=== PATIENT | female | born 1960 | race Caucasian/White ===

== ENCOUNTER 2018-05-17 09:52 | Inpatient (IN) ==
[2018-05-17] MEDS ORDERED: Sodium Chlor 0.9% Inj 250 ML ONE (10:29)
[2018-05-17] MEDS ORDERED: Metoprolol Tartrate 25 MG Tablet PO ONE (11:16)
[2018-05-17] MEDS ORDERED: Sodium Chloride 0.9% 2 ML Flush PRN IV.FLUSH (11:16)
[2018-05-17] MEDS ORDERED: Chlorhexidine Gluconate 2% 1 Pack (2 Cloths) TOPICAL ONE (11:16)
[2018-05-17] MEDS ORDERED: Sodium Chlor 0.9% Inj 73.07 ML, Ropivacaine 0.5% PF Inj 24.63 ML, Ketorolac Inj 30 MG, ... P-ARTICULR ONE ×5 (11:38)
[2018-05-17] MEDS ORDERED: Chlorhexidine 4% Topical 120 APPLIC/120 ML Bottle TOPICAL SCH (11:45)
[2018-05-17] MEDS ORDERED: fentaNYL Citrate Inj 100 MCG/2 ML Ampul ONE ×2 (11:53→12:01)
[2018-05-17] MEDS ORDERED: fentaNYL Citrate Inj 250 MCG/5 ML Ampul ONE (11:53)
[2018-05-17] MEDS ORDERED: Famotidine PF Inj 20 MG/2 ML Vial ONE (11:53)
[2018-05-17] MEDS ORDERED: Sodium Chlor 0.9% Inj 500 ML IV.SIG SCH (12:00)
[2018-05-17] MEDS ORDERED: Vancomycin Inj 1,000 MG in Sodium Chlor 0.9% Inj 250 ML IV.SIG SCH (12:00)
[2018-05-17] MEDS ORDERED: ceFAZolin 2 GM Premix Inj 2 GM/50 ML PIGGYBACK IV.SIG SCH (12:00)
[2018-05-17] MEDS ORDERED: Ketamine Inj 50 MG/5 ML Syringe IV.PUSH ONE (12:01)
[2018-05-17] MEDS ORDERED: ceFAZolin 1 GM Premix Inj 1 GM/50 ML FROZ.PIGGY IV.SIG ONE (13:08)
[2018-05-17] MEDS ORDERED: Bisacodyl 10 MG Supp RECTAL PRN (15:28)
[2018-05-17] MEDS ORDERED: Post-op Orders (for Pharmacy) OTHER STA (15:28)
[2018-05-17] MEDS ORDERED: Morphine Inj 4 MG/ML Vial IV.PUSH PRN (15:28)
[2018-05-17] MEDS ORDERED: Zolpidem Tartrate 5 MG Tablet PO PRN (15:29)
--- NOTE | 2018-05-17 15:39 | P.DCO ---
- Physical Therapy Physical Therapy: Gait training, Safety evaluation, Transfer training, bed to chair Knee: Total knee, Protocol: Left, Full weight bearing Canvas Knee Splint: Other (when in bed sleeping ) - Nursing RN: 3 days/week x 2 weeks Nursing: Dressing changes (clean incision with alcohol and apply dry sterile dressing daily ) Additional instructions: aspirin 81 mg bid x 4 weeks dvt prop - Certification Need for Home Health services: I have seen patient Karlie Wilson on 05/17/18. My clinical findings support the need for the requested home health care services because: Need for Home Health Services: High risk of falls Homebound Certification: I certify that my clinical findings support that this patient is homebound because: Homebound Certification: Post-op weakness
--- NOTE | 2018-05-17 15:53 | MP ---
cc: Imtiaz Gibson MD, Arletty MD DATE OF OPERATION: 05/17/2018 PREOPERATIVE DIAGNOSES: 1. Left knee severe tricompartment osteoarthritis, genu varus deformity. 2. Left knee stiffness. 3. Obesity with body mass index of 36.1. POSTOPERATIVE DIAGNOSES: 1. Left knee severe tricompartment osteoarthritis, genu varus deformity. 2. Left knee stiffness. 3. Obesity with body mass index of 36.1. PROCEDURE PERFORMED: Left total knee arthroplasty -- cemented [employer]. SURGEON: Imtiaz Gibson MD COMMUTATOR TESTER: Cat Fletcher PA-C TOURNIQUET TIME: 69 minutes at 250 mmHg. ANESTHESIA: General, adductor canal block, intraarticular block. DRAINS: Two. SPECIMENS: None. COMPLICATIONS: None. PROCEDURE: My asset protection assistant, Cat Fletcher PA-C, was present for the entire surgical case. She was medically necessary for the entire case, because of the complexity of the case and to facilitate the performance of the procedure. The SEED CLEANING MACHINE OPERATOR at the back table was not of the skill set for this case to manipulate the instruments, e.g. multiple soft tissue retractors, trial implants, permanent implants, including bone cement. The patient was brought in the operating room and had satisfactory anesthesia by the Department of Anesthesia. Left lower extremity was prepped and draped in the usual sterile manner. Because the patient's obesity, great care was made to protect all pressure points. Left lower extremity was prepped and draped in the usual sterile manner. The extremity was exsanguinated by elevation and tourniquet was inflated to 250 mmHg. Anterior exposure to the knee was made. Dissection carried through a considerable amount of adipose tissue down to the underlying fascia. A paramedian capsulotomy was performed. The patella dislocated laterally. The patient was found to have severe tricompartment osteoarthritis in all 3 compartments of the knee. The patient was also found to have significant stiffness in the knee. Preoperative range of motion was 90 degrees of flexion. The remaining portion of medial and lateral meniscus removed. The anterior cruciate ligament was removed. The posterior cruciate ligament was preserved. Prepatellar fat pad was surgically excised. Using the [employer]-Vanguard total knee arthroplasty system, IM guide was used for the distal femur. A 5-degree valgus cut to accept the 70 mm femoral component. The proximal tibia guides were used extramedullary. These were used to accept a 79 mm tibial component. The posterior osteophytes in the distal femur were removed using curved osteotomes. A lamina silk worker was used with the knee flexed at 90 degrees in order to do adequate releases posteriorly. With the 12 mm insert, the patient was found to have excellent balance in both flexion and extension. The undersurface of the patella was removed to accept a 31 mm patellar prosthesis. Lateral retinacular release was performed. The patella was found to groove well within the patellofemoral compartment. All trial components were removed and preparation for cementing was made. Initially, the knee was injected with 100 mL of local anesthesia, which was provided by the Department of Pharmacy. The knee was irrigated with copious amounts of sterile saline antibiotic solution. Two packages of high viscosity bone cement by [employer] were used. First, the tibial component was cemented, which is a 79 mm tibial component, then the femoral component, which was a 70 mm of femoral component. Then, the 31 mm patellar prosthesis was then cemented. All excess bone cement was removed. The bone cement was allowed to harden for 13 minutes. The trial polyethylene plastic was removed and then a 12 x 79 "lipped" polyethylene plastic was assembled onto the tibial tray and then the appropriate clipping mechanisms were used to secure the polyethylene plastic to the tibial tray. The knee was irrigated with 4000 mL of sterile saline antibiotic solution. Tourniquet was deflated. All bleeders were coagulated. The wound itself was dry. It was closed over 2 Hemovac drains. The capsule and extensor mechanism were repaired with multiple #2 Ti-Cron sutures. Subcuticular layers with 0 Vicryl and 2-0 Vicryl, skin was approximated with skin wes. Sterile dressings were applied. The patient tolerated the procedure well and arrived in the recovery room in stable and satisfactory condition. MD SHERIN Joel/srikanth , 03:14 PM , 03:28 PM
[2018-05-17] MEDS ORDERED: *morphine SULFATE 4 MG/ML PERIprocedure ONLY ONE (16:10)
--- NOTE | 2018-05-17 17:16 | XR ---
EXAM DATE: 05/17/2018 5:08 PM EST AGE/SEX: 58 years / Female INDICATIONS: Post of left total knee. CLINICAL DATA: This is the patient's initial encounter. Patient reports that signs and symptoms have been present for 1 day and indicates a pain score of 4/10. MEDICAL/SURGICAL HISTORY: None. Total knee replacement, left. COMPARISON: No prior exams available for comparison. FINDINGS: AP and lateral views of the knee were obtained and demonstrate the patient is status post arthroplast y. The femoral and tibial components are intact and in normal alignment. There are postoperative kirkpatrick ges involving the patella. There is anterior soft tissue swelling and gas with overlying surgical ski n wes. Surgical drainage catheters are also present. CONCLUSION: Expected postoperative changes status post arthroplasty. Electronically signed by: James Benz MD 05/17/2018 5:14 PM EST
--- NOTE | 2018-05-17 18:20 | P.CONIM ---
History of Present Illness Primary Care Provider: Radha Costa [facility] Social History Social History Substance History: No History of Abuse Second Hand Smoke Exposure: No Smoking Status: Former smoker Tobacco Type: Cigarettes How Often Do You Have a Drink Containing Alcohol: Never Recent Travel in [facility] within the Last 8 Weeks: No Recent Out of Country Travel within the Last 8 Weeks: No Immunization History Hx Influenza Vaccine This Season: No Medications and Allergies Allergies Allergy/AdvReac Type Severity Reaction Status Date / Time Penicillins Allergy Severe Hives Verified 05/17/18 10:42 Home Medications Medication Instructions Recorded Confirmed Type aspirin [Aspir-Low] 81 mg PO DAILY 04/19/18 05/17/18 History furosemide 40 mg PO DAILY 04/19/18 05/17/18 History levothyroxine 50 mcg PO DAILY 04/19/18 05/17/18 History lisinopril 20 mg PO DAILY 04/19/18 05/17/18 History metformin 500 mg PO BID 04/19/18 05/17/18 History metoprolol succinate 25 mg PO DAILY 04/19/18 05/17/18 History omeprazole 40 mg PO DAILY 04/19/18 05/17/18 History potassium chloride [K-Tab] 20 meq PO DAILY 04/19/18 05/17/18 History Active Medications: Active Medications Hydrocodone Bitart/Acetaminophen (Perkins 7.5/325) 1 tab PO Q4H PRN PRN Reason: PAIN LESS THAN 5 ON SCALE Hydrocodone Bitart/Acetaminophen (Perkins 7.5/325) 2 tab PO Q6H PRN PRN Reason: PAIN SCALE 5 TO 10 Al Hydroxide/Mg Hydroxide (Milk Of Magnesia Liq) 30 ml PO BID PRN PRN Reason: Mild Constipation Aspirin (Aspirin Chew) 81 mg PO BID [facility] Bisacodyl (Dulcolax Supp) 10 mg RECTAL DAILY PRN PRN Reason: SEVERE CONSITIPATION Chlorhexidine Gluconate (Hibiclens 4% Topical) 1 applicatio TOPICAL ONCE [facility] Stop: 05/21/18 11:44 Furosemide (Lasix) 40 mg PO DAILY [facility] Cefazolin Sodium/Dextrose (Ancef 2 Gm Premix Inj) 2 gm in 50 mls @ 100 mls/hr IV.[facility] [place] [employer]ON[employer] Stop: 05/21/18 11:59 Last Infusion: 05/17/18 14:21 Dose: Infused Vancomycin HCl 1,000 mg/ (Sodium Chloride) 250 mls @ 250 mls/hr IV.[place] [employer]ON[employer] Stop: 05/20/18 11:39 Last Infusion: 05/17/18 14:23 Dose: Infused Lactated Ringer's (Lr 1000 Ml Inj) 1,000 mls @ 80 mls/hr IV.CONT .[id number] [facility] Last Admin: 05/17/18 16:00 Dose: 80 mls/hr Cefazolin Sodium/Dextrose (Ancef 1 Gm Premix Inj) 1 gm in 50 mls @ 100 mls/hr IV.SIG Q6H [facility] Stop: 05/18/18 08:29 Lactulose (Lactulose Liq) 30 ml PO DAILY PRN PRN Reason: SEVERE CONSITIPATION Levothyroxine Sodium (Synthroid) 50 mcg PO DAILY@0600 [facility] Lisinopril (Prinivil) 20 mg PO DAILY [facility] Metformin HCl (Glucophage) 500 mg PO BID@0900,1800 [facility] Metoprolol Succinate (Toprol Xl) 25 mg PO DAILY [facility] Miscellaneous Information ([facility] Nursing Information) 1 each OTHER UNSCH PRN PRN Reason: SEE LABEL COMMENTS Stop: 05/18/18 15:38 Morphine Sulfate (Morphine Inj) 3 mg IV.PUSH Q3H PRN PRN Reason: BREAKTHROUGH PAIN Stop: 05/18/18 06:00 Pantoprazole Sodium (Protonix) 40 mg PO DAILY [facility] Potassium Chloride (K-Dur) 20 meq PO DAILY [facility] Senna/Docusate Sodium (Aditi-Colace) 1 tab PO BID [facility] Sennosides (Senokot) 17.2 mg PO BID PRN PRN Reason: Moderate Constipation Sodium Chloride (Ns Flush) 2 ml IV.FLUSH PRN PRN PRN Reason: FLUSH AFTER USING IV ACCESS Sodium Chloride (Ns Flush) 2 ml IV.FLUSH BID [facility] Zolpidem Tartrate (Ambien) 5 mg PO HS PRN PRN Reason: INSOMNIA Physical Exam Vital signs: Last Vital Signs Temp 97.9 F 05/17/18 16:45 Pulse 83 05/17/18 16:45 Resp 16 05/17/18 16:45 BP 104/51 L 05/17/18 16:45 Pulse Ox 94 L 05/17/18 16:45
[2018-05-17] MEDS ORDERED: Sodium Chlor 0.9% Inj 500 ML IV.SIG ONE (20:00)
[2018-05-17] MEDS: ceFAZolin 1 GM Premix Inj 1 GM/50 ML IV.SIG SCH (20:51)
[2018-05-17] MEDS: Senna/Docusate Sodium 8.6/50 MG Tablet PO SCH (20:53)
[2018-05-17] MEDS ORDERED: Sodium Chloride 0.9% 2 ML Flush BID IV.FLUSH SCH (21:00)
[2018-05-18] MEDS: ceFAZolin 1 GM Premix Inj 1 GM/50 ML IV.SIG SCH ×2 (01:24→07:29)
[2018-05-18 05:25] LABS: Hematocrit 32.8 % (35.0-46.0); Hemoglobin 10.6 gm/dL (11.6-15.3)
[2018-05-18] MEDS ORDERED: Levothyroxine 50 MCG Tablet PO SCH (06:00)
--- NOTE | 2018-05-18 06:53 | P.PNOP ---
Subjective Interval history: POD#1 L TKR No SOB;no chest pain Explained operative findings,answered multiple questions Physical Exam Vital signs: Vital Signs 05/17/18 10:47 05/17/18 11:45 05/17/18 15:38 Temperature 98.7 F 97.7 F Pulse Rate 85 84 93 H Respiratory Rate 16 15 Blood Pressure 105/55 L 102/56 L Pulse Oximetry 100 97 05/17/18 15:45 05/17/18 16:00 05/17/18 16:15 Temperature Pulse Rate 95 H 81 83 Respiratory Rate 15 15 15 Blood Pressure 98/50 L 102/53 L 104/52 L Pulse Oximetry 97 97 95 05/17/18 16:30 05/17/18 16:45 05/17/18 17:40 Temperature 97.9 F 98.4 F Pulse Rate 90 83 84 Respiratory Rate 16 16 18 Blood Pressure 95/50 L 104/51 L 95/51 L Pulse Oximetry 94 L 94 L 96 05/17/18 21:06 05/17/18 23:43 05/18/18 04:00 Temperature 98.0 F Pulse Rate 103 H Respiratory Rate 16 Blood Pressure 94/47 L 94/51 L 103/52 L Pulse Oximetry 95 05/18/18 05:22 Temperature Pulse Rate Respiratory Rate Blood Pressure 115/53 L Pulse Oximetry Intake & Output 05/17/18 05/17/18 05/18/18 06:59 18:59 06:59 Intake Total 1250 / 1250 1800 / 1800 Output Total 100 / 100 550 / 550 Balance 1150 / 1150 1250 / 1250 Weight 121 kg Intake: IV 350 / 350 1800 / 1800 LR 1000 mL Inj 1,000 ML @ 80 900 / 900 mls/hr IV.CONT .[id number] [facility] Rx# :[id number] LR 1000 mL Inj 1,000 ML @ 30 300 / 300 mls/hr IV.SIG .Q24H [facility] Rx#: [id number] NS Inj 500 ML @ 999 mls/hr IV. 500 / 500 SIG BOLUS ONE Rx#:[id number] Vancomycin Inj 1,000 MG In NS 250 / 250 Inj 250 ML @ 250 mls/hr IV.SIG [facility] Rx#:[id number] Ancef 1 GM Premix Inj 1 gm In 50 / 50 100 / 100 50 ml @ 100 mls/hr IV.SIG Q6H [facility] Rx#:[id number] Ancef 2 GM Premix Inj 2 gm In 50 / 50 50 ml @ 100 mls/hr IV.SIG [facility] Rx#:[id number] Anesthesia Amount 900 / 900 Output: Urine 400 / 400 Estimated Blood Loss 100 / 100 Wound Drainage 150 / 150 # 1 Left Knee Hemovac 150 / 150 Other: # Voids 1 Weight On Admission 121 kg Narrative: N/V intact Negative wiliam's;no calf tenderness Drain 150cc last shift Results - Labs CBC & Chem 7: 05/18/18 04:23 Laboratory Results - last 24 hr 05/17/18 05/18/18 10:27 04:23 Hgb 10.6 L Hct 32.8 L Blood Type O Negative Blood Type Recheck Required Antibody Screen Negative MTS Gel Crossmatch See Detail - Imaging Impressions Knee X-Ray 05/17/18 15:27 CONCLUSION: Expected postoperative changes status post arthroplasty. Assessment and Plan - Assessment and Plan Ortho stable PT/Rehab Discharge home today HHC RN/PT Aspirin 81mg BID,TEDS x 4 weeks for DVT/PE prophylaxsis
[2018-05-18] MEDS: Senna/Docusate Sodium 8.6/50 MG Tablet PO SCH (08:26)
[2018-05-18] MEDS ORDERED: Lisinopril 20 MG Tablet PO SCH (09:00)
[2018-05-18] MEDS ORDERED: Furosemide 40 MG Tablet PO SCH (09:00)
== END 2018-05-18 14:43 | disposition home health service (06) ==
LOC: HSDI 09:52 → N06 17:07
PROVIDERS: ADMIT Orthopaedic Surgery Orthopaedic Surgery of the Spine; ATTEND Orthopaedic Surgery Orthopaedic Surgery of the Spine